=== PATIENT | female | born 1990 | race Caucasian/White ===

== ENCOUNTER 2018-04-07 22:11 | Inpatient (IN) | payer OTHER ==
[2018-04-07] MEDS ORDERED: Ondansetron HCl/PF 4 MG/2 ML Vial IVP PRN (22:41)
[2018-04-07] MEDS ORDERED: Lidocaine 1% (PF) 30 ML VIAL SC PRN (22:41)
[2018-04-07] MEDS ORDERED: NS / Oxytocin 40 units/1000ml 1,000 ML IV PRN (22:41)
[2018-04-07] MEDS ORDERED: Ibuprofen 800 MG TAB PO PRN (22:41)
[2018-04-07] MEDS ORDERED: HYDROcodone/Acetaminophen 5/325 mg Tablet PO PRN ×2 (22:41)
[2018-04-07] MEDS ORDERED: Lactated Ringer's 1,000 ML IV SCH (22:45)
[2018-04-07] MEDS ORDERED: Morphine 4 MG/ML VIAL SLOW IVP PRN (22:49)
[2018-04-07 22:53] VITALS: BMI 32.6
[2018-04-07 23:16] LABS: Hemoglobin 11.2 g/dL (12.0-16.0); Mean Corpuscular HGB CONC 33.4 g/dL (32.0-36.0); Mean Corpuscular Hemoglobin 26.2 pg (27.0-31.0); Mean Corpuscular Volume 78.3 fL (78.0-98.0); Mean Platelet Volume 8.3 fL (7.4-10.4); Platelet Count 229 thou/uL (130-400); RBC Distribution Width 14.3 % (11.5-14.5); Red Blood Cell (RBC) Count 4.28 mill/uL (4.20-5.40); White Blood Cell (WBC) Count 8.8 thou/uL (4.8-10.8)
[2018-04-07 23:41] LABS: Hep B Surf Ag Non-Reactive S/CO (NonReactive)
[2018-04-07 23:50] LABS: Syphilis Antibody Nonreactive (Nonreactive); Syphilis Antibody Index 0.04 S/CO (<1.00 Non-Reactive)
[2018-04-08] MEDS: Lactated Ringer's 1,000 ML IV SCH ×2 (01:13→12:19)
[2018-04-08] MEDS: NS / Oxytocin 40 units/1000ml 1,000 ML IV SCH ×2 (09:15→14:15)
--- NOTE | 2018-04-08 09:29 | PDOC.OPDEL ---
OB Operative/Delivery Note Delivery Dr/Surgeon: Sri Pre-Delivery Diagnosis: active labor Procedure/Post Delivery Dx: spontaneous vaginal delivery Weeks gestation: 40 Anesthesia: local - Findings A Sex: male - 1 min: 8 - 5 min: 9 - Additional Findings/Plan Placenta delivered: spontaneous Repaired Obstetrical Laceration: 2nd degree Estimated blood loss: 200ml Compilations/Other Findings: none Post delivery plan: routine recovery
[2018-04-08] MEDS ORDERED: Milk Of Magnesia 30 ML UDCUP PO PRN (09:30)
[2018-04-08] MEDS ORDERED: traMADol HCl 50 MG TAB PO PRN (09:30)
[2018-04-08] MEDS ORDERED: Benzocaine/Menthol 20-0.5% 60 ML CAN TOP PRN (09:30)
[2018-04-08] MEDS ORDERED: diphenhydrAMINE 25 MG CAP PO PRN (09:30)
[2018-04-08] MEDS ORDERED: Bisacodyl 10 MG SUPP PR PRN (09:30)
[2018-04-08] MEDS ORDERED: Misoprostol 200 MCG TAB VAG SCH (09:30)
[2018-04-08] MEDS ORDERED: Adacel (T-DAP) 0.5 ML VIAL IM ONE (09:30)
[2018-04-08] MEDS ORDERED: Lanolin Ointment 7 GM TUBE TOP PRN (09:30)
[2018-04-08] MEDS ORDERED: Preparation H Ointment 28 GM TUBE PR PRN (09:30)
[2018-04-08] MEDS ORDERED: Ibuprofen 800 MG TAB PO SCH (14:00)
[2018-04-08] MEDS: Ferrous Sulfate 325 MG TAB PO SCH (18:08)
[2018-04-08] MEDS: Ibuprofen 800 MG TAB PO SCH (18:13)
[2018-04-08] MEDS: Docusate Calcium (SURFAK) 240 MG CAP PO SCH (21:29)
[2018-04-09] MEDS: Ibuprofen 800 MG TAB PO SCH ×2 (01:45→09:34)
[2018-04-09 07:58] VITALS: BP 121/72; TEMP 98.4
[2018-04-09] MEDS ORDERED: Prenatal Vitamin 1 TAB PO SCH (09:00)
[2018-04-09] MEDS: Ferrous Sulfate 325 MG TAB PO SCH (09:32)
[2018-04-09] MEDS: Docusate Calcium (SURFAK) 240 MG CAP PO SCH (09:34)
== END 2018-04-09 17:45 | disposition home or self-care (01) | DRG 775 ==
LOC: L&D/OP 22:11 → L&D-LIB 04-08 01:00 → 3SW 04-08 11:45
PROVIDERS: ADMIT Obstetrics & Gynecology; ATTEND Obstetrics & Gynecology
PROC: 10E0XZZ Delivery of Products of Conception, External Approach (ICD-10-PCS; principal; 2018-04-08)
PROC: 0KQM0ZZ Repair Perineum Muscle, Open Approach (ICD-10-PCS; 2018-04-08)
DX: O99.52 Diseases of the respiratory system complicating childbirth (principal); J45.909 Unspecified asthma, uncomplicated; O70.1 Second degree perineal laceration during delivery; Z37.0 Single live birth; Z3A.39 39 weeks gestation of pregnancy
CPT/HCPCS: 85027; 86780; 86850; 86900; 86901; 87340; 99285; J2001; J2270